=== PATIENT | male | born 1960 | race Caucasian/White ===

== ENCOUNTER 2023-07-30 14:03 | Emergency (ER) | payer BC, SELFPAY ==
[2023-07-30 14:09] VITALS: BP 155/93
[2023-07-30 14:35] VITALS: BMI 26.6
[2023-07-30 14:41] VITALS: BP 148/83
[2023-07-30 15:09] LABS: ALT (SGPT) 57 U/L (0-50); AST (SGOT) 46 U/L (17-59); Albumin 4.8 g/dl (3.5-5.0); Alkaline Phosphatase 99 U/L (38-126); Blood Urea Nitrogen 13 mg/dl (9-20); Calcium 9.3 mg/dl (8.4-10.2); Carbon Dioxide 25 mmol/L (22-30); Chloride 102 mmol/L (98-107); Estimated Creatinine Clearance 92 ml/min; Glucose 124 mg/dl (70-99); Potassium 3.4 mmol/L (3.5-5.1); Sodium 137 mmol/L (135-145); Total Protein 7.7 g/dl (6.3-8.2); eGFR > 60.00
[2023-07-30 15:18] LABS: Troponin I < 0.012 ng/ml
[2023-07-30 15:27] LABS: COVID-19 Antigen Negative (Negative)
[2023-07-30 15:35] LABS: % Basophils 1.5 % (0-2); % Eosinophils 0.9 % (0-6); % Immature Granulocytes 0.4 % (0-0.5); % Lymphocytes 21.5 % (20.5-51.1); % Monocytes 12.1 % (1.7-9.3); % Neutrophils 63.6 % (42.2-75.2); Absolute Basophils 0.1 10^3/uL (0-0.2); Absolute Monocytes 0.6 10^3/uL (0.1-0.6); Absolute Neutrophils 2.9 10^3/uL (1.4-6.5); Hemoglobin 17.2 g/dL (13.0-18.0); Mean Corp Hgb Conc. 37.4 g/dL (33.0-37.0); Mean Corpuscular Hgb 33.8 pg (27.0-31.0); Mean Corpuscular Volume 90.4 fL (80.0-94.0); Mean Platelet Volume 11.2 fL (7.4-10.4); Nucleated Red Blood Cells % 0 % (-); Platelet Count 219 10^3/uL (130-400); Red Blood Cell Count 5.09 10^6/uL (4.70-6.10); Red Cell Dist. Width 13.1 % (11.5-14.5); White Blood Cell Count 4.6 10^3/uL (4.8-10.8)
[2023-07-30 16:00] VITALS: BP 142/75
[2023-07-30 17:00] VITALS: BP 137/75
--- NOTE | 2023-07-30 17:10 | ED.GENMED ---
History of Present Illness
General
Chief Complaint: Chest Pain
Source: patient
Exam Limitations: none
Time Seen by Provider: 07/30/23 15:02
Nursing documentation reviewed up to this point in time: agreed with
Travel History
Have you had any contact with someone who has COVID-19?: No
Do you have any symptoms of coronavirus? Fever > 100 degrees, chills, cough, shortness of breath, sore throat, loss of taste or smell, muscle aches, or headache?: No
History of Present Illness
History of Present Illness:
62-year-old male with past medical history of previous DVT a few years ago without obvious inciting events not currently anticoagulated. Also previous cerebellar stroke presenting to the emergency department today with concerns of chest tightness
and shortness of breath starting this morning. Has felt some intermittent palpitations as well. The chest tightness is to the center chest. Has associated shortness of breath made worse with some exertion also feels somewhat lightheaded with
ambulation as well. Denies recent illness fevers vomiting diaphoresis.
Past History
Past History
ED Past Medical History: HTN and Other (BPH, prostatitis DVT,); Negative Asthma, Hypercholesterolemia or NIDDM
ED Past Surgical History: Urological (Partial prostatectomy)
Social History
Tobacco: Non-smoker
Alcohol: Daily (Cocktail, 2 glasses)
Drug: None
Personal:
Living: with family
Review of Systems
Review of Systems
Allergies reviewed?: Yes
All Other Systems: ROS reviewed and negative except as documented in HPI and ROS
Phy Exam
Physical Exam
Physical Exam:
GENERAL: Alert , in no apparent distress
EYE: pupils equal and reactive
NECK: Supple, no significant adenopathy.
ENT: o/p clr, mmm.
CARDIAC: Regular rate and rhythm .
LUNGS: Clear breath sounds bilaterally, no acute respiratory distress, no wheezes/rales/rhonchi
ABDOMEN: Soft, without focal tenderness, no r/g, no cvat
NEUROLOGICAL: Alert and oriented, no focal neuro deficits
SKIN: Warm and dry, skin intact.
MUSCULOSKELETAL: No edema, well perfused.
PSYCH: Normal and appropriate interaction.
Scores
Heart Score for Chest Pain Patients
STEMI patient?: No
History: Slightly or Non-Suspicious
ECG: Normal
Age: >45 - <65 years
Risk Factors: >/= 3 Risk Factors or History of CAD
Troponin: </= Normal Limit
Heart Score for Chest Pain Patients: 3
Heart Score Risk: 2.5% MACE over next 6 weeks
Course
Orders/Labs/Results
Orders:
Orders
07/30/23 14:11
Electrocardiogram (*1) Urgent
Reason for Study: Chest Pain
EKG- Treatment ONCE
07/30/23 14:40
CMP [Comprehensive Metabolic Panel] Urgent
COVID-19 Antigen Urgent
Source: Nasal Swab
Complete Blood Count/With Diff Urgent
Troponin I Urgent
Influenza A+B Rapid Molecular Urgent
EMMIE Source: Nasal Swab
Specimen Description:
07/30/23 15:57
CT Chest Pe Study Urgent
Comment:
Reason For Exam: dvt hx
Abnormal Lab Results
07/30/23
14:40
WBC 4.6 L 10^3/uL
(4.8-10.8)
MCH 33.8 H pg
(27.0-31.0)
MCHC 37.4 H g/dL
(33.0-37.0)
MPV 11.2 H fL
(7.4-10.4)
Absolute Lymphs (auto) 1.0 L 10^3/uL
(1.2-3.4)
Monocytes % 12.1 H %
(1.7-9.3)
Potassium 3.4 L mmol/L
(3.5-5.1)
Glucose 124 H mg/dl
(70-99)
ALT 57 H U/L
(0-50)
07/30/23 14:40
07/30/23 14:40
Vital Signs
Initial and Last Documented VS:
Initial Vital Signs
Temp Pulse Resp BP Pulse Ox
97.6 F 104 18 155/93 98
07/30/23 14:09 07/30/23 14:09 07/30/23 14:09 07/30/23 14:09 07/30/23 14:09
Last Documented Vital Signs
Temp Pulse Resp BP Pulse Ox
97.6 F 90 14 137/75 96
07/30/23 14:09 07/30/23 17:00 07/30/23 17:00 07/30/23 17:00 07/30/23 17:00
MDM/Problems Addressed
MDM/Problems Addressed:
62-year-old male presenting to the emergency department today with concerns of chest tightness and shortness of breath starting this morning. On arrival patient's heart rate is elevated but pulse ox normal normal respiratory rate normal heart and
lung examination. Initial labs unremarkable. Patient does have a history of DVT without inciting event at the time not currently anticoagulated. Concerning this patient is moderate risk for PE at this time CT scan for further assessment was
ordered. CT PE without evidence of PE or alternate pathology. Troponin negative. EKG normal. No signs of emergent pathology at this time advised for close outpatient follow-up. Return precautions given.
*Critical Care Note
Total Time (30-74mins, 75-104mins- exclusive of procedures): Not Applicable
ED Attending Note
-
Portions of this chart may have been created with voice recognition software.� Occasional wrong word or��sound alike� substitutions may have occurred due to the inherent limitations of voice recognition software.
Discharge Plan
Departure
Patient Disposition: Home (Routine Discharge)
Date of Disposition: 07/30/23
Time of Disposition: 18:14
Patient with high blood pressure during this ER visit?: No
Condition: Good
Covid-19: Not Applicable
Discharge Problem:
Chest pain
Instructions: Chest Pain DCA Follow Up
Prescriptions:
No Action
amlodipine 10 mg Tablet
10 mg PO DAILY
allopurinol 300 mg Tablet
300 mg PO DAILY
colchicine 0.6 mg Capsule
0.6 mg PO DAILY
mecobalamin (vitamin B12) [B12 Active] 1,000 mcg Tablet,Chewable
1,000 mcg PO DAILY
Referrals:
Josue Denise MD [Family Provider] -
Activity Restrictions/Additional Instructions:
You came to the emergency department today with concerns of chest discomfort and shortness of breath. Here you had a reassuring evaluation. Please follow closely with the video coordinator. Return to the emergency department for any worsening, new or
concerning symptoms.
Interventions
Interventions:
*Risk Screen - Suicide Last Done: 07/30/23 14:09
*General Assessment Last Done: 07/30/23 14:09
*Neglect/Abuse Screening Last Done: 07/30/23 14:09
*ED COVID-19 Vaccine History Last Done: 07/30/23 14:09
== END 2023-07-30 18:19 | disposition home or self-care (01) ==
LOC: EMR 14:03
PROVIDERS: Emergency Medicine; EMERGENCY PHYSICIAN Emergency Medicine; FAMILY PHYSICIAN Family Medicine
DX: R07.89 Other chest pain (principal); I10 Essential (primary) hypertension; N40.0 Benign prostatic hyperplasia without lower urinary tract symptoms; I25.10 Atherosclerotic heart disease of native coronary artery without angina pectoris; Z86.73 Personal history of transient ischemic attack (TIA), and cerebral infarction without residual deficits; Z90.79 Acquired absence of other genital organ(s)
CPT/HCPCS: 99284; 71275; 80053; 84484; 85025; 87502; 87811; 93005; Q9967

== ENCOUNTER → 2024-02-10 06:20 | Day surgery (SDC) | payer BC, SELFPAY | LOC: GI 06:20 | PROVIDERS: ATTENDING PHYSICIAN Surgery | DX: Z12.11 Encounter for screening for malignant neoplasm of colon (principal); Z86.010 Personal history of colon polyps; K63.5 Polyp of colon | CPT/HCPCS: 45380; 88305 ==

== ENCOUNTER → 2024-06-10 11:39 | Outpatient (REF) | payer BC, SELFPAY | LOC: CLAB 11:39 | PROVIDERS: ATTENDING PHYSICIAN Surgery | DX: L98.9 Disorder of the skin and subcutaneous tissue, unspecified (principal) | CPT/HCPCS: 88305 ==

== ENCOUNTER → 2024-06-13 13:58 | Outpatient (REF) | payer BC, SELFPAY ==
[2024-06-13 15:58] LABS: Hematocrit 46.4 % (39.0-52.0); Hemoglobin 16.6 g/dL (13.0-18.0); Mean Corp Hgb Conc. 35.8 g/dL (33.0-37.0); Mean Corpuscular Hgb 33.1 pg (27.0-31.0); Mean Corpuscular Volume 92.4 fL (80.0-94.0); Mean Platelet Volume 11.1 fL (7.4-10.4); Platelet Count 218 10^3/uL (130-400); Red Blood Cell Count 5.02 10^6/uL (4.70-6.10); Red Cell Dist. Width 12.5 % (11.5-14.5); White Blood Cell Count 6.2 10^3/uL (4.8-10.8)
[2024-06-13 16:02] LABS: ALT (SGPT) 86 U/L (0-50); AST (SGOT) 50 U/L (17-59); Albumin 4.9 g/dl (3.5-5.0); Alkaline Phosphatase 90 U/L (38-126); Blood Urea Nitrogen 18 mg/dl (9-20); Calcium 9.3 mg/dl (8.4-10.2); Carbon Dioxide 29 mmol/L (22-30); Chloride 96 mmol/L (98-107); Glucose 127 mg/dl (70-99); Potassium 3.5 mmol/L (3.5-5.1); Sodium 137 mmol/L (135-145); Total Cholesterol 261 mg/dl (50-199); Total Protein 7.5 g/dl (6.3-8.2); Triglyceride 86 mg/dl (10-149); Very Low Density Lipoprotein 17 mg/dl (0-30); eGFR > 60.00
[2024-06-13 16:12] LABS: HDL Cholesterol 140 mg/dl; LDL Cholesterol, Calculated 104 mg/dl
[2024-06-13 16:33] LABS: PSA, Total - Screen 3.57 ng/ml (0.0-4.0); TSH Reflex To Free T4 4.33 uIU/ml (0.47-4.68)
[2024-06-13 20:10] LABS: Hepatitis B Surface Antibody Positive
[2024-06-14 08:39] LABS: Glycohemoglobin (HgbA1c) 6.6 % (4.0-5.6)
== END ==
LOC: REG 13:58
PROVIDERS: ATTENDING PHYSICIAN Specialist; FAMILY PHYSICIAN Nurse Practitioner Family
DX: Z12.5 Encounter for screening for malignant neoplasm of prostate (principal); R78.5 Finding of other psychotropic drug in blood; Z13.0 Encounter for screening for diseases of the blood and blood-forming organs and certain disorders involving the immune mechanism; Z13.29 Encounter for screening for other suspected endocrine disorder; Z13.1 Encounter for screening for diabetes mellitus
CPT/HCPCS: 36415; 80053; 80061; 83036; 84443; 85027; 86706; G0103

== ENCOUNTER → 2024-06-16 14:51 | Outpatient (REF) | payer BC, SELFPAY | LOC: RAD 14:51 | PROVIDERS: ATTENDING PHYSICIAN Nurse Practitioner Family | DX: R10.9 Unspecified abdominal pain (principal) | CPT/HCPCS: 76700 ==

== ENCOUNTER → 2024-06-27 13:32 | Outpatient (REF) | payer BC, SELFPAY ==
[2024-06-30 00:08] LABS: Gastrin 15 pg/mL (0-100)
== END ==
LOC: REG 13:32
PROVIDERS: ATTENDING PHYSICIAN Nurse Practitioner Family
DX: K86.2 Cyst of pancreas (principal)
CPT/HCPCS: 36415; 82941; 82943

== ENCOUNTER → 2024-07-01 18:22 | Outpatient (REF) | payer BC, SELFPAY | LOC: MRI 18:22 | PROVIDERS: ATTENDING PHYSICIAN Nurse Practitioner Family | DX: K86.2 Cyst of pancreas (principal) | CPT/HCPCS: 74183; A9575 ==

== ENCOUNTER → 2024-07-26 14:34 | Outpatient (REF) | payer BC, SELFPAY | LOC: REG 14:34 | PROVIDERS: ATTENDING PHYSICIAN Nurse Practitioner Family | DX: Z01.89 Encounter for other specified special examinations (principal) | CPT/HCPCS: 36415; 82943 ==

== ENCOUNTER → 2024-08-01 06:35 | Outpatient (REF) | payer BC, SELFPAY | LOC: RAD 06:35 | PROVIDERS: ATTENDING PHYSICIAN Nurse Practitioner Family | DX: L72.9 Follicular cyst of the skin and subcutaneous tissue, unspecified (principal) | CPT/HCPCS: 76882 ==

== ENCOUNTER → 2024-11-02 16:09 | Outpatient (REF) | payer BC, SELFPAY ==
[2024-11-02 17:39] LABS: ALT (SGPT) 68 U/L (0-50); AST (SGOT) 45 U/L (17-59); Albumin 4.8 g/dl (3.5-5.0); Alkaline Phosphatase 80 U/L (38-126); Blood Urea Nitrogen 12 mg/dl (9-20); Calcium 9.8 mg/dl (8.4-10.2); Carbon Dioxide 28 mmol/L (22-30); Chloride 98 mmol/L (98-107); Glucose 132 mg/dl (70-99); Potassium 3.7 mmol/L (3.5-5.1); Sodium 137 mmol/L (135-145); Total Bilirubin 1.3 mg/dl (0.2-1.3); Total Protein 7.7 g/dl (6.3-8.2); eGFR > 60.00
[2024-11-02 17:58] LABS: Microalbumin/creatinine Ratio 18.4 mg/g
[2024-11-02 18:07] LABS: Cortisol, Random 8.5 ug/dl; TSH Reflex To Free T4 4.94 uIU/ml (0.47-4.68)
[2024-11-02 18:36] LABS: Free T4 1.21 ng/dl (0.78-2.19)
[2024-11-03 12:39] LABS: Glycohemoglobin (HgbA1c) 6.7 % (4.0-5.6)
[2024-11-05 07:58] LABS: % Free Testosterone 1.6 % (1.6-2.9); Free Testosterone 87 pg/mL (47-244); Sex Hormone Binding Globulin 43 nmol/L (19-76); Total Testosterone 529 ng/dL (300-720)
== END ==
LOC: REG 16:09
PROVIDERS: ATTENDING PHYSICIAN Nurse Practitioner Family
DX: R73.9 Hyperglycemia, unspecified (principal); R68.89 Other general symptoms and signs
CPT/HCPCS: 36415; 80053; 82043; 82533; 82570; 83036; 83525; 84270; 84402; 84403; 84439; 84443

== ENCOUNTER 2024-11-08 06:23 | Day surgery (SDC) | payer BC, SELFPAY | END 2024-11-08 14:55 | disposition home or self-care (01) | LOC: GI 06:23 | PROVIDERS: ATTENDING PHYSICIAN Internal Medicine | DX: R14.0 Abdominal distension (gaseous) (principal); K22.2 Esophageal obstruction; K44.9 Diaphragmatic hernia without obstruction or gangrene; K29.70 Gastritis, unspecified, without bleeding; K31.89 Other diseases of stomach and duodenum; K29.50 Unspecified chronic gastritis without bleeding; K31.A19 Gastric intestinal metaplasia without dysplasia, unspecified site; Z13.810 Encounter for screening for upper gastrointestinal disorder | CPT/HCPCS: 43239; 88305; 88342 ==

== ENCOUNTER → 2025-03-07 15:58 | Outpatient (REF) | payer BC, SELFPAY ==
[2025-03-07 18:18] LABS: ALT (SGPT) 96 U/L (0-50); AST (SGOT) 68 U/L (17-59); Albumin 5.2 g/dl (3.5-5.0); Alkaline Phosphatase 97 U/L (38-126); Blood Urea Nitrogen 13 mg/dl (9-20); Calcium 9.9 mg/dl (8.4-10.2); Carbon Dioxide 32 mmol/L (22-30); Chloride 97 mmol/L (98-107); Glucose 185 mg/dl (70-99); Potassium 3.4 mmol/L (3.5-5.1); Sodium 138 mmol/L (135-145); Total Protein 8.2 g/dl (6.3-8.2); Very Low Density Lipoprotein 19 mg/dl (0-30); eGFR > 60.00
[2025-03-07 18:25] LABS: Hematocrit 49.5 % (39.0-52.0); Hemoglobin 17.3 g/dL (13.0-18.0); Mean Corp Hgb Conc. 34.9 g/dL (33.0-37.0); Mean Corpuscular Volume 95.4 fL (80.0-94.0); Platelet Count 243 10^3/uL (130-400); Red Cell Dist. Width 12.5 % (11.5-14.5)
[2025-03-07 18:27] LABS: HDL Cholesterol 142 mg/dl; LDL Cholesterol, Calculated 119 mg/dl
[2025-03-07 18:39] LABS: Microalb - Urine Creatinine 100.300 mg/dl
[2025-03-07 18:46] LABS: Microalbumin, Random Urine 17.3 mg/dl (0.6-1.7)
[2025-03-08 10:12] LABS: Glycohemoglobin (HgbA1c) 6.7 % (4.0-5.6)
== END ==
LOC: CLAB 15:58
PROVIDERS: ATTENDING PHYSICIAN Nurse Practitioner Family
DX: E78.5 Hyperlipidemia, unspecified (principal); E11.9 Type 2 diabetes mellitus without complications
CPT/HCPCS: 80053; 80061; 82043; 82570; 83036; 85027

== ENCOUNTER → 2025-03-17 17:23 | Outpatient (REF) | payer BC, SELFPAY ==
[2025-03-17 17:57] LABS: Hematocrit 49.4 % (39.0-52.0); Hemoglobin 16.8 g/dL (13.0-18.0); Mean Corp Hgb Conc. 34.0 g/dL (33.0-37.0); Mean Corpuscular Volume 95.7 fL (80.0-94.0); Nucleated Red Blood Cells % 0 % (-); Platelet Count 247 10^3/uL (130-400); Red Cell Dist. Width 12.5 % (11.5-14.5)
[2025-03-17 18:17] LABS: ALT (SGPT) 81 U/L (0-50); AST (SGOT) 65 U/L (17-59); Albumin 4.9 g/dl (3.5-5.0); Alkaline Phosphatase 77 U/L (38-126); Blood Urea Nitrogen 17 mg/dl (9-20); Calcium 10.3 mg/dl (8.4-10.2); Carbon Dioxide 25 mmol/L (22-30); Chloride 102 mmol/L (98-107); Glucose 146 mg/dl (70-99); Potassium 3.7 mmol/L (3.5-5.1); Sodium 139 mmol/L (135-145); Total Protein 7.8 g/dl (6.3-8.2); eGFR > 60.00
== END ==
LOC: CLAB 17:23
PROVIDERS: ATTENDING PHYSICIAN Nurse Practitioner Family
DX: R79.89 Other specified abnormal findings of blood chemistry (principal)
CPT/HCPCS: 36415; 80053; 85025

== ENCOUNTER → 2025-03-27 12:27 | Outpatient (REF) | payer BC, SELFPAY | LOC: RAD 12:27 | PROVIDERS: ATTENDING PHYSICIAN Nurse Practitioner Family | DX: K86.2 Cyst of pancreas (principal) | CPT/HCPCS: 76700 ==

== ENCOUNTER → 2025-06-27 13:57 | Outpatient (REF) | payer BC, SELFPAY ==
[2025-06-27 15:32] LABS: PSA, Total - Screen 3.11 ng/ml (0.0-4.0)
== END ==
LOC: REG 13:57
PROVIDERS: ATTENDING PHYSICIAN Specialist
DX: Z12.5 Encounter for screening for malignant neoplasm of prostate (principal)
CPT/HCPCS: 36415; G0103